=== PATIENT | male | born 1955 | race Caucasian/White ===

== ENCOUNTER → 2018-02-07 16:07 | Outpatient (CLI) | payer BC ==
[2015-08-31 11:28] VITALS: BMI 24.1
[~2018-02-07 16:07] MED LIST: ADVAIR 500/501 DISK INH; LISINOPRIL10 MG PO; PROAIR HFA8.5 GM INH; SPIRIVA18 MCG INH; XANAX0.5 MG PO; ZANTAC150 MG PO
[2018-02-07 16:23] LABS: BASOPHILS 0.7 % (0-2); EOSINOPHILS 2.4 % (0-7); HEMATOCRIT 43.4 % (42.0-54.0); HEMOGLOBIN 14.5 g/dL (13.5-17.5); IMMATURE GRANULOCYTES 0.1 % (0-5); LYMPHOCYTES 22.9 % (15-50); MCH 29.5 pg (26.0-34.0); MCHC 33.4 g/dL (31.0-37.0); MCV 88.4 fL (80.0-100.0); MEAN PLATELET VOLUME 10.9 fL (7.4-10.4); MONOCYTES 11.9 % (2-11); PLATELET COUNT 197 10x3/uL (130-400); RBC 4.91 10x6/uL (4.20-6.10); RDW 12.9 % (11.5-14.5); WBC 7.6 10x3/uL (4.8-10.8)
[2018-02-07 16:52] LABS: ALBUMIN 3.6 g/dL (3.4-5.0); ALKALINE PHOSPHATASE 54 U/L (46-116); ALT (SGPT) 26 U/L (10-68); BILIRUBIN - TOTAL 0.33 mg/dL (0.2-1.3); CALC OSMOLALITY 280 mosm/kg (275-300); CARBON DIOXIDE 34.3 mmol/L (21.0-32.0); CHLORIDE - SERUM 104 mmol/L (98-107); CREATININE - SERUM 0.9 mg/dL (0.6-1.3); GLUCOSE 100 mg/dL (74-106); POTASSIUM - SERUM 4.1 mmol/L (3.5-5.1); PROTEIN - SERUM 7.4 g/dL (6.4-8.2); SODIUM 141 mmol/L (136-145); UREA NITROGEN 13 mg/dL (7-18); eGFR NON AFRICAN AMERICAN > 90 mL/min (90-120)
[2018-02-07 17:34] LABS: ERYTHROCYTE SEDIMENTATION RATE 3 mm/hr (0-20)
== END | disposition home or self-care (01) ==
LOC: D.LAB 15:45
PROVIDERS: Internal Medicine Gastroenterology
DX: K51.90 Ulcerative colitis, unspecified, without complications (principal); R19.4 Change in bowel habit

== ENCOUNTER 2018-06-20 09:45 | Day surgery (SDC) | payer BC ==
[2018-06-19 10:30] LABS: HEMATOCRIT 45.9 % (42.0-54.0); HEMOGLOBIN 15.8 g/dL (13.5-17.5); MCH 30.4 pg (26.0-34.0); MCHC 34.4 g/dL (31.0-37.0); MCV 88.4 fL (80.0-100.0); MEAN PLATELET VOLUME 11.2 fL (7.4-10.4); RBC 5.19 10x6/uL (4.20-6.10); RDW 12.4 % (11.5-14.5); WBC 9.7 10x3/uL (4.8-10.8)
[2018-06-19 10:37] LABS: CALC OSMOLALITY 281 mosm/kg (275-300); CARBON DIOXIDE 32.8 mmol/L (21.0-32.0); CHLORIDE - SERUM 102 mmol/L (98-107); CREATININE - SERUM 0.8 mg/dL (0.6-1.3); GLUCOSE 116 mg/dL (74-106); SODIUM 141 mmol/L (136-145); UREA NITROGEN 12 mg/dL (7-18); eGFR NON AFRICAN AMERICAN > 90 mL/min (90-120)
[~2018-06-20] VITALS: Ht 180.3 cm; Wt 70.8 kg
--- NOTE | ~2018-06-20 | OP ---
PATIENT NAME: JOSE VICTORIA MEDICAL RECORD: [id number] :53 LOCATION:D.OPS ADMISSION DATE: SURGEON: KYLIE SAGASTUME MD DATE OF OPERATION: 06/20/2018 PREOPERATIVE DIAGNOSES: 1. Ascending colon polyp. 2. Sigmoid colon polyp. POSTOPERATIVE DIAGNOSES: 1. Ascending colon polyp. 2. Sigmoid colon polyp. 3. Inadequate prep. 4. Also 3 sessile polyps were noted. These were all less than 1 cm in diameter. I was unable to identify any residual ascending colon or sigmoid colon polyps. PROCEDURES: 1. Total colonoscopy to cecum. 2. Hot biopsy forceps polypectomies times 3. SURGEON: Kylie Sagastume MD ELECTROPLATING LABORER: None. BLOOD LOSS: Minimal. ANESTHESIA: General. COMPLICATIONS: None. The risks, possible complications, and alternatives to the procedure were explained to the patient. He elects to proceed. The discussion specifically included, but was not limited to, bleeding, requiring emergency reoperation; and infection. OPERATIVE COURSE: The patient was conveyed to the operating room electively on 06/20/2018. General anesthesia was induced by the anesthesia staff. The patient was placed in the Caicedo position. A digital rectal examination was performed. A colonoscope was inserted through the anus. It was easily advanced to the cecum. The prep was inadequate. Upon withdrawal, I irrigated and aspirated extensively. An ascending colon tattoo was noted. I examined the milton of the colon and irrigated extensively. I was unable to identify any residual or recurrent polyp. I continued to withdraw the endoscope. Three sessile polyps were identified and all 3 were removed in their entireties utilizing the hot biopsy forceps polypectomy technique. I examined the sigmoid colon very carefully as well. Diverticulosis was noted. I identified no tattoo, probably due to the inadequate prep. A retroflexed view was obtained in the rectum. I then unretroflexed the scope and removed it under direct vision. I will see the patient in my office in 2-3 weeks. I will plan for his next OPERATIVE REPORT [id number] JOSE VICTORIA colonoscopy with the argon plasma rubber insulator to take place in 2 years. This can be done in the GI lab. TRANSINT:[id number] Voice Confirmation ID: [id number] DOCUMENT ID: [id number] KYLIE SAGASTUME MD at 2243 CC: TRIPP BRITTON and CHATO PINA [id number] DICTATION DATE: 06/20/18 1502 VENEER STACKER: 06/20/18 1710 [facility] 06/20/18 [place] [id number] [place] [id number]
[~2018-06-20 09:45] MED LIST changes: +APRISO0.375 GM PO; +RANITIDINE HCL150 M1 PO; +ZANAFLEX2 M1 PO
[2018-06-20 10:13] VITALS: BP 135/56; Ht 180.3 cm; Wt 70.8 kg
== END 2018-06-20 16:35 | disposition home or self-care (01) ==
LOC: D.OPS 09:45 → D.PAN 16:00 → D.OPS 16:00
PROVIDERS: Anesthesiology
DX: D12.4 Benign neoplasm of descending colon (principal); D12.3 Benign neoplasm of transverse colon; K63.5 Polyp of colon; K57.30 Diverticulosis of large intestine without perforation or abscess without bleeding; Z01.812 Encounter for preprocedural laboratory examination

== ENCOUNTER → 2018-07-20 09:44 | Outpatient (CLI) | payer BC ==
[2018-06-20 10:13] VITALS: BMI 21.8
== END | disposition home or self-care (01) ==
LOC: D.LAB 09:44
DX: N40.0 Benign prostatic hyperplasia without lower urinary tract symptoms (principal)